=== PATIENT | female | born 1980 | race Hispanic/Latino ===

== ENCOUNTER 2016-12-19 18:26 | Inpatient (IN) | payer OTHER ==
[2016-12-19] MEDS ORDERED: Sodium Chloride 0.9% 1,000 ML IV STA (20:26)
[2016-12-19 20:49] LABS: BASO % 0.2 % (0.0-2.0); LYMPH # 0.6 K/uL (1.0-4.3); LYMPH % 10.9 % (20.0-40.0); MEAN CELL VOLUME 89.8 fl (81.0-99.0); MEAN CORPUSCULAR HEMOGLOBIN 29.9 pg (27.0-31.0); MEAN CORPUSCULAR HGB CONC 33.3 g/dL (33.0-37.0); MEAN PLATELET VOLUME 9.7 fl (7.2-11.7); MONO % 18.5 % (0.0-10.0); NEUT # 3.8 K/uL (1.8-7.0); NEUT % 70.4 % (50.0-75.0); NRBC % 0.1 % (0.0-0.0); RED CELL DISTRIBUTION WIDTH 12.8 % (11.5-14.5); WHITE BLOOD COUNT 5.4 K/uL (4.8-10.8)
--- NOTE | 2016-12-19 20:55 | ED PDOC ---
HPI: Abdomen Time Seen by Provider: 12/19/16 19:59 Chief Complaint (Nursing): Abdominal Pain Chief Complaint (Provider): abdominal pain History Per: Patient History/Exam Limitations: no limitations Onset/Duration Of Symptoms: Days (2), Gradual, Persistent Location Of Pain/Discomfort: RUQ, Epigastric Associated Symptoms: Fever, Chills, Nausea, Vomiting, Diarrhea, Loss Of Appetite , Other (vaginal bleeding due to recent D&C). denies: Urinary Symptoms Exacerbating Factors: None Alleviating Factors: None Past Medical History Reviewed: Historical Data, Nursing Documentation, Vital Signs Vital Signs: Last Vital Signs Temp 98.2 F 12/22/16 07:36 Pulse 72 12/22/16 07:36 Resp 20 12/22/16 07:36 BP 94/59 L 12/22/16 07:36 Pulse Ox 94 L 12/22/16 07:36 - Medical History PMH: No Chronic Diseases - Surgical History Surgical History: No Surg Hx - Family History Family History: States: No Known Family Hx - Home Medications Home Medications: Ambulatory Orders Medication Instructions Recorded No Known Home Med 12/19/16 - Allergies Allergies/Adverse Reactions: Allergies Allergy/AdvReac Type Severity Reaction Status Date / Time No Known Allergies Allergy Verified 12/19/16 18:28 Review of Systems ROS Statement: Except As Marked, All Systems Reviewed And Found Negative (and as per HPI) Constitutional: Positive for: Fever, Chills, Weakness, Malaise Gastrointestinal: Positive for: Nausea, Vomiting, Abdominal Pain, Diarrhea. Negative for: Constipation, Melena, Hematochezia, Hematemesis Genitourinary Female: Positive for: Vaginal Bleeding Physical Exam - Reviewed Nursing Documentation Reviewed: Yes Vital Signs Reviewed: Yes - Physical Exam Appears: Positive for: Non-toxic, Uncomfortable, In Acute Distress Head Exam: Positive for: ATRAUMATIC, NORMOCEPHALIC Skin: Positive for: Warm, Dry Eye Exam: Positive for: EOMI, PERRL ENT: Positive for: Pharynx Is (clear), Other (dry muc memb) Neck: Positive for: Painless ROM, Supple Cardiovascular/Chest: Positive for: Chest Non Tender, Tachycardia. Negative for : Murmur Respiratory: Positive for: Normal Breath Sounds. Negative for: Respiratory Distress Gastrointestinal/Abdominal: Positive for: Bowel Sounds, Soft, Tenderness. Negative for: Mass, Distended, Guarding, Rebound Back: Positive for: Normal Inspection. Negative for: Vertebral Tenderness Extremity: Positive for: Normal ROM. Negative for: Deformity Lymphatic: Negative for: Adenopathy Neurologic/Psych: Positive for: Alert. Negative for: Motor/Sensory Deficits - Laboratory Results Result Diagrams: 12/22/16 06:00 12/22/16 06:00 Interpretation Of Abn Labs: Mild dehydration, otherwise no clinically significant lab abnormalities - ECG O2 Sat by Pulse Oximetry: 100 - Progress ED Course And Treament: Accession No. : [id number] Patient Name / ID : ANTHONY CONNELLY / [id number] Exam Date : 12/19/2016 20:43:38 ( Approved ) Study Comment : Sex / Age : F / 36Y Creator : Maxim Pardo MD Dictator : Leader Assembler : Orientation & Mobility Specialist : Maxim Pardo MD Approver2 : Report Date : 12/19/2016 21:09:00 My Comment : [facility] Division of Radiology [address] [place] [address] Tel. no. Patient Name: GODWIN CRUZ Pt. Address: [facility] Rec #: [id number] Ordering Dr: Woodrow CARDOSO,Radha Jacobs Pt Phone: Order Location: [facility] : 1980 Female Age: 36 Order #: [id number] Reason for exam: RUQ pain and vomint Ultrasound GALLBLADDER HEPATIC Exam Date: 12/19/16 This imaging exam was performed at [facility] EXAM: US Abdomen Limited, Right Upper Quadrant CLINICAL HISTORY: 36 years old, female; Pain; Abdominal pain; Epigastric; Additional info: Ruq pain and vomint TECHNIQUE: Real-time ultrasound of the right upper quadrant with image documentation. COMPARISON: No relevant prior studies available. FINDINGS: Liver: Normal echogenicity. No mass. No intrahepatic bile duct dilatation. Gallbladder: Nonmobile stone within neck. Sludge. 0.28-0.38 cm wall thickness. No pericholecystic fluid. No sonographic Palacio's sign. Common bile duct: No dilatation. No stones. Pancreas: Unremarkable as visualized. Right kidney: Normal echogenicity. No hydronephrosis. IMPRESSION: 1. Cholelithiasis with borderline gallbladder wall thickening. Clinical correlation is needed. 2. Incidental/non-acute findings are described above. Dictated By: Maxim Pardo MD Dictated Date/Time: 12/19/162108 Signed By: Maxim Pardo MD Date Signed: 2108 Transcribed By: LATONYA Transcribe Date/Time : 12/19/162108 ACYP02/MANUEL DW pt findings and plan of care DW Lora Coates and Tereso, Surgery DW Dr Cronin Hospitalist Antibiotics IV ordered. Medical Decision Making Medical Decision Makinyo w gastroenteritis, cholelithiasis and possible cholecystitis, early sepsis and dehydration. Needs hospitalization for further management. Aggressive fluid hydration, pain control, IV antibiotics, surgical consultation. Disposition - Clinical Impression Clinical Impression: Abdominal pain, Cholecystitis - Disposition Disposition Time: 21:30 Condition: SERIOUS - Pt Status Changed To: Hospital Disposition Of: Observation - POA Present On Arrival: None
[2016-12-19 20:57] LABS: ALB/GLOB RATIO 1.2 (1.0-2.1); ALKALINE PHOSPHATASE 33 U/L (38-126); ALT/SGPT 94 U/L (9-52); AST/SGOT 74 U/L (14-36); BLOOD UREA NITROGEN 8 mg/dl (7-17); CALCIUM 9.2 mg/dL (8.4-10.2); CARBON DIOXIDE 23 mmol/L (22-30); CHLORIDE 96 mmol/L (98-107); GFR AFRICAN-AMERICAN > 60; GLUCOSE,RANDOM 115 mg/dL (65-105); LIPASE 177 U/L (23-300); SODIUM 131 mmol/l (132-148); TOTAL PROTEIN 7.9 G/DL (6.3-8.2)
[2016-12-19 20:58] LABS: POTASSIUM 4.6 MMOL/L (3.6-5.0)
--- NOTE | 2016-12-19 21:10 | US ---
EXAM: US Abdomen Limited, Right Upper Quadrant CLINICAL HISTORY: 36 years old, female; Pain; Abdominal pain; Epigastric; Additional info: Ruq pain and vomint TECHNIQUE: Real-time ultrasound of the right upper quadrant with image documentation. COMPARISON: No relevant prior studies available. FINDINGS: Liver: Normal echogenicity. No mass. No intrahepatic bile duct dilatation. Gallbladder: Nonmobile stone within neck. Sludge. 0.28-0.38 cm wall thickness. No pericholecystic fluid. No sonographic Palacio's sign. Common bile duct: No dilatation. No stones. Pancreas: Unremarkable as visualized. Right kidney: Normal echogenicity. No hydronephrosis. IMPRESSION: 1. Cholelithiasis with borderline gallbladder wall thickening. Clinical correlation is needed. 2. Incidental/non-acute findings are described above.
[2016-12-19] MEDS ORDERED: Ampicillin/Sulbactam 3 GM in Sodium Chloride 0.9% 100 ML IVPB ONE (22:00)
--- NOTE | 2016-12-19 22:02 | CP.PCM.HP ---
History of Present Illness - History of Present Illness History of Present Illness: PCP: None Chief complaint: Abdominal Pain/diarrhea HPI: 36 years old female with no significant past medical hx was sent to the Ed from the Urgent Care because of a 2 days hx of Intermittent , sharp , epigastric pain radiating to the RUQ and associated with fever, chills, diarrhea , vomiting and nausea, loss of appetite. She referred no eating of different foods, no travel hx, no other family member with vomiting and diarrhea. PMH: Denies PSH: Dilation and Curettage SH: Never smoked; Alcohol Socially; No illegal drug use; Live with family FH: No hereditary disease Allergies: NKDA Present on Admission - Present on Admission Any Indicators Present on Admission: No History of DVT/PE: No History of Uncontrolled Diabetes: No Urinary Catheter: No Decubitus Ulcer Present: No Review of Systems - Constitutional Constitutional: Anorexia, Chills, Fever. absent: Fatigue, Headache, Lethargy - EENT Eyes: absent: Diplopia, Floaters, Photophobia, Requires Corrective Lenses Ears: absent: Decreased Hearing, Ear Discharge, Ear Pain, Tinnitus Nose/Mouth/Throat: absent: Epistaxis, Nasal Congestion, Nasal Discharge, Sinus Pain, Sinus Pressure - Cardiovascular Cardiovascular: absent: Chest Pain, Dyspnea, Edema - Respiratory Respiratory: absent: Cough, Dyspnea, Wheezing, Stridor - Gastrointestinal Gastrointestinal: Abdominal Pain, Diarrhea, Nausea, Vomiting. absent: Constipation - Genitourinary Genitourinary: absent: Dysuria, Flank Pain, Hematuria, Urinary Frequency - Musculoskeletal Musculoskeletal: absent: Arthralgias, Back Pain, Muscle Cramps, Muscle Weakness , Myalgias - Integumentary Integumentary: absent: Pruritus, Rash, Skin Ulcer, Sores, Striae, Swelling - Neurological Neurological: absent: Confusion, Focal Weakness, Headaches, Weakness - Psychiatric Psychiatric: absent: Anxiety, Depression, Panic Attacks - Endocrine Endocrine: absent: Palpitations, Polydipsia, Polyphagia, Polyuria - Hematologic/Lymphatic Hematologic: absent: Easy Bleeding, Easy Bruising Past Patient History - Past Social History Smoking Status: Never Smoked Chewing Tobacco Use: No Cigar Use: No Alcohol: Social Drugs: Denies Home Situation {Lives}: With Family - CARDIAC Hx Cardiac Disorders: No - PULMONARY Hx Respiratory Disorders: No - NEUROLOGICAL Hx Neurological Disorder: No - HEENT Hx HEENT Problems: No - RENAL Hx Chronic Kidney Disease: No - ENDOCRINE/METABOLIC Hx Endocrine Disorders: No - HEMATOLOGICAL/ONCOLOGICAL Hx Blood Disorders: No - INTEGUMENTARY Hx Dermatological Problems: No - MUSCULOSKELETAL/RHEUMATOLOGICAL Hx Musculoskeletal Disorders: No - GASTROINTESTINAL Hx Gastrointestinal Disorders: No - GENITOURINARY/GYNECOLOGICAL Hx Genitourinary Disorders: No - PSYCHIATRIC Hx Psychophysiologic Disorder: No Hx Substance Use: No - SURGICAL HISTORY Hx Surgeries: Yes Hx Dilation and Curettage: Yes - ANESTHESIA Hx Anesthesia: Yes Hx Anesthesia Reactions: No Meds Allergies/Adverse Reactions: Allergies Allergy/AdvReac Type Severity Reaction Status Date / Time No Known Allergies Allergy Verified 12/19/16 18:28 Physical Exam - Constitutional Appears: No Acute Distress - Head Exam Head Exam: ATRAUMATIC, NORMAL INSPECTION, NORMOCEPHALIC - Eye Exam Eye Exam: EOMI, Normal appearance Pupil Exam: NORMAL ACCOMODATION, PERRL - ENT Exam ENT Exam: Mucous Membranes Moist, Normal Exam, Normal External Ear Exam, Normal Oropharynx - Neck Exam Neck exam: Positive for: Full Rom, Normal Inspection. Negative for: Lymphadenopathy, Tenderness - Respiratory Exam Respiratory Exam: Clear to Auscultation Bilateral. absent: Rales, Rhonchi, Wheezes - Cardiovascular Exam Cardiovascular Exam: REGULAR RHYTHM, RRR, +S1, +S2. absent: Gallop, JVD - GI/Abdominal Exam Additional comments: Soft, Tender at the Epigastrium and RUQ, no guarding Moderate rebound tenderness - Rectal Exam Rectal Exam: Deferred - Extremities Exam Extremities exam: Positive for: full ROM, normal inspection. Negative for: calf tenderness - Back Exam Back exam: NORMAL INSPECTION. absent: CVA tenderness (L), CVA tenderness (R) - Neurological Exam Neurological exam: Alert, CN II-XII Intact, Normal Gait, Oriented x3, Reflexes Normal - Psychiatric Exam Psychiatric exam: Normal Affect, Normal Mood - Skin Skin Exam: Dry, Intact, Normal Color, Warm Results - Vital Signs Recent Vital Signs: Last Vital Signs Temp 101.2 F H 12/19/16 21:16 Pulse 109 H 12/19/16 18:28 Resp 20 12/19/16 18:28 BP 99/63 L 12/19/16 18:28 Pulse Ox 100 12/19/16 21:57 - Labs Result Diagrams: 12/19/16 20:10 12/19/16 20:10 Labs: Laboratory Results - last 24 hr 12/19/16 12/19/16 20:10 20:10 WBC 5.4 RBC 4.23 Hgb 12.6 Hct 38.0 MCV 89.8 MCH 29.9 MCHC 33.3 RDW 12.8 Plt Count 225 MPV 9.7 Neut % (Auto) 70.4 Lymph % (Auto) 10.9 L [place] % (Auto) 18.5 H Eos % (Auto) 0.0 Baso % (Auto) 0.2 Neut # 3.8 Lymph # 0.6 L [place] # 1.0 H Eos # 0.0 Baso # 0.0 Sodium 131 L Potassium 4.6 Chloride 96 L Carbon Dioxide 23 Anion Gap 17 BUN 8 Creatinine 0.7 Est GFR ( Amer) > 60 Est GFR (Non-Af Amer) > 60 Random Glucose 115 H Calcium 9.2 Total Bilirubin 1.0 AST 74 H ALT 94 H Alkaline Phosphatase 33 L Total Protein 7.9 Albumin 4.3 Globulin 3.6 Albumin/Globulin Ratio 1.2 Lipase 177 - Imaging and Cardiology US - abdomen Status: Report reviewed by me Additional comment: FINDINGS: Liver: Normal echogenicity. No mass. No intrahepatic bile duct dilatation. Gallbladder: Nonmobile stone within neck. Sludge. 0.28-0.38 cm wall thickness. No pericholecystic fluid. No sonographic Palacio's sign. Common bile duct: No dilatation. No stones. Pancreas: Unremarkable as visualized. Right kidney: Normal echogenicity. No hydronephrosis. IMPRESSION: 1. Cholelithiasis with borderline gallbladder wall thickening. Clinical correlation is needed. 2. Incidental/non-acute findings are described above. Assessment & Plan - Assessment and Plan (Free Text) Assessment: #. Abdominal Pain #. Gastroenteritis #. Cholelithiasis #. Hyponatremia #. Transaminitis Plan: 36 years old female with no significant past medical hx was sent to the Ed from the Urgent Care because of a 2 days hx of Intermittent , sharp , epigastric pain radiating to the RUQ and associated with fever, chills, diarrhea , vomiting and nausea, loss of appetite. #. Gastroenteritis r/o Bacterial vs Viral - IV Fluids NS 125mls/hr - Zofran - Follow Stool C&S - follow Stool C Diff toxins #. Abdominal pain probably due to the Gastroenteritis and or a Biliary Colic - Pain management with Morphine sulfate #. Cholelithiasis within the neck, Sludge and wall thickening r/o cholecystitis - Consult Surgery Dr Coates - NPO - HIDA Scan #. Hyponatremia - IV Fluid with NS at 125mls/hr #. Transaminitis due to the Diarrhea and vomiting - Hepatitis profile - Follow LFT #. Stress ulcer Prophylaxis with Pepcid #. DVT prophylaxis with SCD #. Code Status: Full - Date & Time Date: 12/19/16 Time: 22:02
[2016-12-20] MEDS: Ampicillin/Sulbactam 3 GM in Sodium Chloride 0.9% 100 ML IVPB SCH ×4 (04:08→21:54)
--- NOTE | 2016-12-20 04:36 | CP.PCM.CON ---
<Jovanni Rider Collin - Last Filed: 12/20/16 05:02> History of Present Illness - History of Present Illness History of Present Illness: Gen Surg: Dr Coates Pt is a 36F with no PMH. Recently had D&C for miscarriage on saturday. On saturday pt was having macaroni and cheese when she developed a sharp stabbing epigastric pain. That pain has progressively radiated to the RUQ. Does not radiate to the back. It has been fairly consistent since onset, with associated nausea and billous emesis. Last bout of emesis @ 3AM this morning. Pt reports also having associated diarrhea. She has never had pain like this before. Denies any chills, constipation, dysuria. Of note, pt states her baseline BP is normally low. She has been urinating frequently since IV fluid administration. In ED pt was febrile, Tmax 101.6. Found to have a stone in the neck of gallbladder and mild transaminitis. Review of Systems - Review of Systems All systems: reviewed and no additional remarkable complaints except (as per hpi ) Past Patient History - Past Social History Smoking Status: Never Smoked - CARDIAC Hx Cardiac Disorders: No - PULMONARY Hx Respiratory Disorders: No - NEUROLOGICAL Hx Neurological Disorder: No - HEENT Hx HEENT Problems: No - RENAL Hx Chronic Kidney Disease: No - ENDOCRINE/METABOLIC Hx Endocrine Disorders: No - HEMATOLOGICAL/ONCOLOGICAL Hx Blood Disorders: No - INTEGUMENTARY Hx Dermatological Problems: No - MUSCULOSKELETAL/RHEUMATOLOGICAL Hx Falls: No - GASTROINTESTINAL Hx Gastrointestinal Disorders: No - GENITOURINARY/GYNECOLOGICAL Hx Genitourinary Disorders: No - PSYCHIATRIC Hx Psychophysiologic Disorder: No Hx Substance Use: No - SURGICAL HISTORY Hx Surgeries: Yes Hx Dilation and Curettage: Yes - ANESTHESIA Hx Anesthesia: Yes Hx Anesthesia Reactions: No Meds Allergies/Adverse Reactions: Allergies Allergy/AdvReac Type Severity Reaction Status Date / Time No Known Allergies Allergy Verified 12/19/16 18:28 - Medications Medications: Current Medications Famotidine (Pepcid) 20 mg IVP Q12 YURIDIA Dextrose/Sodium Chloride (Dextrose 5%-0.9% Ns 500 Ml) 1,000 mls @ 100 mls/hr IV .Q10H YURIDIA Last Admin: 12/20/16 00:04 Dose: Not Given Ampicillin Sodium/Sulbactam (Sodium 3 gm/ Sodium Chloride) 100 mls @ 100 mls/ hr IVPB Q6 YURIDIA Last Admin: 12/20/16 04:08 Dose: 100 mls/hr Sodium Chloride (Sodium Chloride 0.9%) 1,000 mls @ 125 mls/hr IV .Q8H [facility] Stop: 12/20/16 22:49 Last Admin: 12/20/16 00:00 Dose: Not Given Morphine Sulfate (Morphine) 2 mg IVP Q4 PRN PRN Reason: Pain, moderate (4-7) Last Admin: 12/20/16 04:09 Dose: 2 mg Morphine Sulfate (Morphine) 4 mg IVP Q4 PRN PRN Reason: Pain, severe (8-10) Ondansetron HCl (Zofran Inj) 4 mg IVP Q4 PRN PRN Reason: Nausea/Vomiting Zolpidem Tartrate (Ambien) 5 mg PO HS PRN PRN Reason: Sleep Last Admin: 12/20/16 00:12 Dose: 5 mg Physical Exam - Constitutional Appears: Non-toxic, No Acute Distress - Head Exam Head Exam: NORMAL INSPECTION - Eye Exam Eye Exam: EOMI. absent: Scleral icterus - ENT Exam ENT Exam: Mucous Membranes Moist - Respiratory Exam Respiratory Exam: absent: Accessory Muscle Use, Respiratory Distress - Cardiovascular Exam Cardiovascular Exam: REGULAR RHYTHM. absent: Tachycardia - GI/Abdominal Exam GI & Abdominal Exam: Soft, Tenderness (epigastric and RUQ, - Palacio's). absent : Distended, Firm, Guarding, Hernia, Mass, Rebound, Rigid - Extremities Exam Extremities exam: Positive for: pedal pulses present. Negative for: calf tenderness, pedal edema - Neurological Exam Neurological exam: Alert, Oriented x3 - Psychiatric Exam Psychiatric exam: Normal Affect, Normal Mood - Skin Skin Exam: Normal Color, Warm Results - Vital Signs Recent Vital Signs: Last Vital Signs Temp 98.0 F 12/20/16 00:31 Pulse 77 12/20/16 00:31 Resp 19 12/20/16 00:31 BP 94/60 L 12/20/16 00:31 Pulse Ox 96 12/20/16 00:31 - Labs Result Diagrams: 12/19/16 20:10 12/19/16 20:10 Assessment & Plan - Assessment and Plan (Free Text) Assessment: 36F with RUQ pain Plan: likely biliary in etiology possible HIDA per primary's note Cont abx cont NPO cont IV fluids will d/w attending need for surgical intervention will d/w Dr Jaxon Rider, PGY2 - Date & Time Date: 12/20/16 Time: 05:12 <Amos Funes - Last Filed: 12/20/16 11:39> History of Present Illness - History of Present Illness History of Present Illness: Patient was seen and examined at the bedside. Agree with resident's note above. Meds - Medications Medications: Current Medications Famotidine (Pepcid) 20 mg IVP Q12 YURIDIA Dextrose/Sodium Chloride (Dextrose 5%-0.9% Ns 500 Ml) 1,000 mls @ 100 mls/hr IV .Q10H YURIDIA Last Admin: 12/20/16 07:15 Dose: Not Given Ampicillin Sodium/Sulbactam (Sodium 3 gm/ Sodium Chloride) 100 mls @ 100 mls/ hr IVPB Q6 YURIDIA Last Admin: 12/20/16 04:08 Dose: 100 mls/hr Sodium Chloride (Sodium Chloride 0.9%) 1,000 mls @ 125 mls/hr IV .Q8H YURIDIA Stop: 12/20/16 22:49 Last Admin: 12/20/16 07:14 Dose: Not Given Potassium Chloride (Potassium Chloride 10 Meq/100 Ml) 100 mls @ 100 mls/hr IVPB Q1 YURIDIA Stop: 12/20/16 11:59 Morphine Sulfate (Morphine) 2 mg IVP Q4 PRN PRN Reason: Pain, moderate (4-7) Last Admin: 12/20/16 04:09 Dose: 2 mg Morphine Sulfate (Morphine) 4 mg IVP Q4 PRN PRN Reason: Pain, severe (8-10) Ondansetron HCl (Zofran Inj) 4 mg IVP Q4 PRN PRN Reason: Nausea/Vomiting Zolpidem Tartrate (Ambien) 5 mg PO HS PRN PRN Reason: Sleep Last Admin: 12/20/16 00:12 Dose: 5 mg Results - Vital Signs Recent Vital Signs: Last Vital Signs Temp 99.4 F 12/20/16 07:36 Pulse 94 H 12/20/16 07:36 Resp 18 12/20/16 07:36 BP 94/60 L 12/20/16 07:36 Pulse Ox 98 12/20/16 07:36 - Labs Result Diagrams: 12/20/16 06:20 12/20/16 06:20 Labs: Laboratory Results - last 24 hr 12/20/16 12/20/16 06:20 06:20 WBC 4.9 RBC 3.61 L Hgb 10.8 L Hct 32.1 L MCV 89.0 MCH 29.9 MCHC 33.6 RDW 12.7 Plt Count 165 MPV 8.9 Neut % (Auto) 56.0 Lymph % (Auto) 14.0 L [place] % (Auto) 29.6 H Eos % (Auto) 0.1 Baso % (Auto) 0.3 Neut # 2.8 Lymph # 0.7 L [place] # 1.5 H Eos # 0.0 Baso # 0.0 Neutrophils % (Manual) 33 L Band Neutrophils % 22 H* Lymphocytes % (Manual) 21 Monocytes % (Manual) 24 H Platelet Estimate Normal Hypochromasia (manual) Slight Sodium 137 Potassium 3.4 L Chloride 104 Carbon Dioxide 25 Anion Gap 11 BUN 6 L Creatinine 0.7 Est GFR ( Amer) > 60 Est GFR (Non-Af Amer) > 60 Random Glucose 112 H Calcium 8.3 L Total Bilirubin 0.4 AST 37 H D ALT 81 H Alkaline Phosphatase 36 L Total Protein 5.8 L Albumin 3.2 L D Globulin 2.7 Albumin/Globulin Ratio 1.2 - Imaging and Cardiology US - abdomen Status: Image reviewed by me, Report reviewed by me Assessment & Plan - Assessment and Plan (Free Text) Plan: - Keep NPO - IV fluids - Pain control - Unasyn - HIDA scan - Will follow
[2016-12-20 06:58] LABS: BASO % 0.3 % (0.0-2.0); EOS % 0.1 % (0.0-4.0); HEMATOCRIT 32.1 % (34.0-47.0); LYMPH # 0.7 K/uL (1.0-4.3); MEAN CORPUSCULAR HEMOGLOBIN 29.9 pg (27.0-31.0); MEAN CORPUSCULAR HGB CONC 33.6 g/dL (33.0-37.0); MEAN PLATELET VOLUME 8.9 fl (7.2-11.7); MONO # 1.5 K/uL (0.0-0.8); MONO % 29.6 % (0.0-10.0); NEUT # 2.8 K/uL (1.8-7.0); PLATELET COUNT 165 K/uL (130-400); RED CELL DISTRIBUTION WIDTH 12.7 % (11.5-14.5); WHITE BLOOD COUNT 4.9 K/uL (4.8-10.8)
[2016-12-20 07:04] LABS: ALB/GLOB RATIO 1.2 (1.0-2.1); ALKALINE PHOSPHATASE 36 U/L (38-126); ALT/SGPT 81 U/L (9-52); AST/SGOT 37 U/L (14-36); BILIRUBIN,TOTAL 0.4 mg/dl (0.2-1.3); BLOOD UREA NITROGEN 6 mg/dl (7-17); CALCIUM 8.3 mg/dL (8.4-10.2); CARBON DIOXIDE 25 mmol/L (22-30); CHLORIDE 104 mmol/L (98-107); GFR AFRICAN-AMERICAN > 60; GLUCOSE,RANDOM 112 mg/dL (65-105); POTASSIUM 3.4 MMOL/L (3.6-5.0); SODIUM 137 mmol/l (132-148); TOTAL PROTEIN 5.8 G/DL (6.3-8.2)
[2016-12-20] MEDS: Sodium Chloride 0.9% 1,000 ML IV SCH ×2 (07:14)
[2016-12-20 11:13] LABS: NEUTROPHIL 33 % (42-75); TOTAL CELLS COUNTED 100
[2016-12-20] MEDS: Potassium CL 10mEq/100ml 100 ML IVPB SCH ×2 (11:45→12:57)
[2016-12-20] MEDS: metroNIDAZOLE 500mg/100ml NS 100 ML IVPB SCH ×2 (12:00→17:44)
--- NOTE | 2016-12-20 12:21 | CP.PCM.PN ---
Subjective - Date & Time of Evaluation Date of Evaluation: 12/20/16 Time of Evaluation: 12:00 - Subjective Subjective: Febrile 101.2 on admission no fever at present still with RUQ pain but better no N/V diarrhea resolved no CP no SOB no dysuria Pt had recent miscarriage last wk and had D&C Objective - Vital Signs/Intake and Output Vital Signs (last 24 hours): Temp Pulse Resp BP Pulse Ox 99.4 F 94 H 18 94/60 L 98 12/20/16 07:36 12/20/16 07:36 12/20/16 07:36 12/20/16 07:36 12/20/16 07:36 - Medications Medications: Current Medications Famotidine (Pepcid) 20 mg IVP Q12 YURIDIA Ampicillin Sodium/Sulbactam (Sodium 3 gm/ Sodium Chloride) 100 mls @ 100 mls/ hr IVPB Q6 YURIDIA Last Admin: 12/20/16 10:00 Dose: 100 mls/hr Sodium Chloride (Sodium Chloride 0.9%) 1,000 mls @ 125 mls/hr IV .Q8H COUNT INCLUDES THE [facility] Stop: 12/20/16 22:49 Last Admin: 12/20/16 07:14 Dose: Not Given Metronidazole (Flagyl 500mg/100ml Ns) 100 mls @ 100 mls/hr IVPB Q8 YURIDIA Morphine Sulfate (Morphine) 2 mg IVP Q4 PRN PRN Reason: Pain, moderate (4-7) Last Admin: 12/20/16 04:09 Dose: 2 mg Morphine Sulfate (Morphine) 4 mg IVP Q4 PRN PRN Reason: Pain, severe (8-10) Ondansetron HCl (Zofran Inj) 4 mg IVP Q4 PRN PRN Reason: Nausea/Vomiting Zolpidem Tartrate (Ambien) 5 mg PO HS PRN PRN Reason: Sleep Last Admin: 12/20/16 00:12 Dose: 5 mg - Labs Labs: 12/20/16 06:20 12/20/16 06:20 - Constitutional Appears: No Acute Distress - Head Exam Head Exam: NORMAL INSPECTION, NORMOCEPHALIC - Eye Exam Eye Exam: EOMI, Normal appearance, PERRL Pupil Exam: NORMAL ACCOMODATION - ENT Exam ENT Exam: Mucous Membranes Moist, Normal External Ear Exam - Neck Exam Neck Exam: Full ROM. absent: Meningismus - Respiratory Exam Respiratory Exam: NORMAL BREATHING PATTERN. absent: Respiratory Distress - Cardiovascular Exam Cardiovascular Exam: REGULAR RHYTHM, +S1, +S2 - GI/Abdominal Exam GI & Abdominal Exam: Soft, Tenderness (RUQ), Normal Bowel Sounds - Extremities Exam Extremities Exam: Full ROM, Normal Capillary Refill. absent: Calf Tenderness - Back Exam Back Exam: Full ROM, NORMAL INSPECTION. absent: CVA tenderness (L), CVA tenderness (R), paraspinal tenderness - Neurological Exam Neurological Exam: Alert, Awake, CN II-XII Intact, Oriented x3 Neuro motor strength exam: Left Upper Extremity: 5, Right Upper Extremity: 5, Left Lower Extremity: 5, Right Lower Extremity: 5 - Psychiatric Exam Psychiatric exam: Normal Affect, Normal Mood - Skin Skin Exam: Dry, Normal Color, Warm Assessment and Plan - Assessment and Plan (Free Text) Assessment: 36 years old female with no significant past medical hx was sent to the ED from the Urgent Care because of a 2 days hx of Intermittent , sharp , epigastric pain radiating to the RUQ and associated with fever, chills, diarrhea , vomiting and nausea, loss of appetite. #. RUQ Abdominal pain probably due to Biliary Colic -GB sonogram shows Gallstone with some pericholecystic inflammation - LFTS abnormal - Surgery consulted - HIDA scan - started empirically on IV Unasyn , add Flagyl - Pain mgt #. Vomiting Diarrhea prob Gastroenteritis, resolved - IV Fluids NS 125mls/hr - Zofran -Stool C&S - Stool C Diff toxin: negative #. Hyponatremia, imroved - IV Fluid with NS at 125mls/hr #. Transaminitis prob sec GB dis - Hepatitis profile: negative - Follow LFT #. Stress ulcer Prophylaxis with Pepcid #. DVT prophylaxis with SCD
[2016-12-21] MEDS: metroNIDAZOLE 500mg/100ml NS 100 ML IVPB SCH ×3 (01:15→16:43)
[2016-12-21] MEDS: Ampicillin/Sulbactam 3 GM in Sodium Chloride 0.9% 100 ML IVPB SCH ×4 (04:18→22:33)
[2016-12-21 06:40] LABS: BASO % 0.3 % (0.0-2.0); EOS % 0.3 % (0.0-4.0); HEMATOCRIT 29.8 % (34.0-47.0); LYMPH # 1.2 K/uL (1.0-4.3); LYMPH % 16.4 % (20.0-40.0); MEAN CELL VOLUME 89.2 fl (81.0-99.0); MEAN CORPUSCULAR HEMOGLOBIN 29.7 pg (27.0-31.0); MEAN CORPUSCULAR HGB CONC 33.3 g/dL (33.0-37.0); MEAN PLATELET VOLUME 8.7 fl (7.2-11.7); MONO # 1.5 K/uL (0.0-0.8); MONO % 21.1 % (0.0-10.0); NEUT # 4.5 K/uL (1.8-7.0); NEUT % 61.9 % (50.0-75.0); RED CELL DISTRIBUTION WIDTH 12.7 % (11.5-14.5); WHITE BLOOD COUNT 7.2 K/uL (4.8-10.8)
[2016-12-21 06:49] LABS: ALB/GLOB RATIO 1.1 (1.0-2.1); ALKALINE PHOSPHATASE 41 U/L (38-126); ALT/SGPT 65 U/L (9-52); AST/SGOT 19 U/L (14-36); BILIRUBIN,TOTAL 0.2 mg/dl (0.2-1.3); BLOOD UREA NITROGEN 6 mg/dl (7-17); CALCIUM 8.2 mg/dL (8.4-10.2); CARBON DIOXIDE 25 mmol/L (22-30); CHLORIDE 106 mmol/L (98-107); GFR AFRICAN-AMERICAN > 60; GLUCOSE,RANDOM 83 mg/dL (65-105); POTASSIUM 3.6 MMOL/L (3.6-5.0); SODIUM 141 mmol/l (132-148); TOTAL PROTEIN 5.6 G/DL (6.3-8.2)
[2016-12-21 07:00] LABS: PARTIAL THROMBOPLASTIN TIME 27.4 Seconds (25.6-37.1)
--- NOTE | 2016-12-21 09:06 | CP.PCM.PN ---
Subjective - Date & Time of Evaluation Date of Evaluation: 12/21/16 Time of Evaluation: 07:45 Objective - Vital Signs/Intake and Output Vital Signs (last 24 hours): Temp Pulse Resp BP Pulse Ox 98.3 F 77 18 96/61 L 99 12/21/16 00:13 12/21/16 00:13 12/21/16 00:13 12/21/16 00:13 12/21/16 00:13 - Medications Medications: Current Medications Famotidine (Pepcid) 20 mg IVP Q12 [facility] Last Admin: 12/21/16 08:33 Dose: 20 mg Ampicillin Sodium/Sulbactam (Sodium 3 gm/ Sodium Chloride) 100 mls @ 100 mls/ hr IVPB Q6 [facility] Last Admin: 12/21/16 04:18 Dose: 100 mls/hr Metronidazole (Flagyl 500mg/100ml Ns) 100 mls @ 100 mls/hr IVPB Q8 [facility] Last Admin: 12/21/16 08:30 Dose: 100 mls/hr Morphine Sulfate (Morphine) 2 mg IVP Q4 PRN PRN Reason: Pain, moderate (4-7) Last Admin: 12/20/16 21:41 Dose: 2 mg Morphine Sulfate (Morphine) 4 mg IVP Q4 PRN PRN Reason: Pain, severe (8-10) Ondansetron HCl (Zofran Inj) 4 mg IVP Q4 PRN PRN Reason: Nausea/Vomiting Zolpidem Tartrate (Ambien) 5 mg PO HS PRN PRN Reason: Sleep Last Admin: 12/20/16 00:12 Dose: 5 mg - Labs Labs: 12/21/16 06:10 12/21/16 06:10 PT 13.9 Seconds (9.8-13.1) H 12/21/16 06:10 INR 1.2 (0.9-1.2) 12/21/16 06:10 APTT 27.4 Seconds (25.6-37.1) 12/21/16 06:10
--- NOTE | 2016-12-21 10:32 | CP.PCM.PN ---
Subjective - Date & Time of Evaluation Date of Evaluation: 12/21/16 Time of Evaluation: 10:05 - Subjective Subjective: Patient was seen and examined at the bedside. HIDA scan is negative for cystic duct obstruction. Having diarrhea and reports some crampy abdominal pain. Objective - Vital Signs/Intake and Output Vital Signs (last 24 hours): Temp Pulse Resp BP Pulse Ox 98.6 F 89 20 98/63 L 98 12/21/16 09:40 12/21/16 09:40 12/21/16 09:40 12/21/16 09:40 12/21/16 09:40 - Medications Medications: Current Medications Famotidine (Pepcid) 20 mg IVP Q12 [facility] Last Admin: 12/21/16 08:33 Dose: 20 mg Ampicillin Sodium/Sulbactam (Sodium 3 gm/ Sodium Chloride) 100 mls @ 100 mls/ hr IVPB Q6 [facility] Last Admin: 12/21/16 09:04 Dose: 100 mls/hr Metronidazole (Flagyl 500mg/100ml Ns) 100 mls @ 100 mls/hr IVPB Q8 [facility] Last Admin: 12/21/16 08:30 Dose: 100 mls/hr Morphine Sulfate (Morphine) 2 mg IVP Q4 PRN PRN Reason: Pain, moderate (4-7) Last Admin: 12/20/16 21:41 Dose: 2 mg Morphine Sulfate (Morphine) 4 mg IVP Q4 PRN PRN Reason: Pain, severe (8-10) Ondansetron HCl (Zofran Inj) 4 mg IVP Q4 PRN PRN Reason: Nausea/Vomiting Zolpidem Tartrate (Ambien) 5 mg PO HS PRN PRN Reason: Sleep Last Admin: 12/20/16 00:12 Dose: 5 mg - Labs Labs: 12/21/16 06:10 12/21/16 06:10 PT 13.9 Seconds (9.8-13.1) H 12/21/16 06:10 INR 1.2 (0.9-1.2) 12/21/16 06:10 APTT 27.4 Seconds (25.6-37.1) 12/21/16 06:10 - Constitutional Appears: Well, Non-toxic, No Acute Distress - Head Exam Head Exam: ATRAUMATIC, NORMAL INSPECTION, NORMOCEPHALIC - Eye Exam Eye Exam: EOMI, Normal appearance, PERRL Pupil Exam: NORMAL ACCOMODATION, PERRL - ENT Exam ENT Exam: Mucous Membranes Moist, Normal Exam - Neck Exam Neck Exam: Full ROM, Normal Inspection - Respiratory Exam Respiratory Exam: NORMAL BREATHING PATTERN - Cardiovascular Exam Cardiovascular Exam: REGULAR RHYTHM, +S1, +S2 - GI/Abdominal Exam GI & Abdominal Exam: Soft, Normal Bowel Sounds Additional comments: Very mildly tender, ND, no rebound, no guarding - Rectal Exam Rectal Exam: Deferred - Extremities Exam Extremities Exam: Full ROM, Normal Inspection - Neurological Exam Neurological Exam: Alert, Awake, CN II-XII Intact, Oriented x3 - Psychiatric Exam Psychiatric exam: Normal Affect, Normal Mood - Skin Skin Exam: Dry, Intact, Normal Color, Warm Assessment and Plan - Assessment and Plan (Free Text) Assessment: 36 y.o. female with abdominal pain and diarrhea likely secondary to gastroenteritis Plan: - Start clear liquid diet - pain control - Pepcid - Zofran prn - Repeat labs in am - No general surgery intervention at present time - Will follow
--- NOTE | 2016-12-21 12:02 | NM ---
PROCEDURE: Radionuclide hepatobiliary scan HISTORY: Cholelithiasis r/o Cholecystitis COMPARISON: Not available TECHNIQUE: Following the intravenous administration of 5.00 mCi of technetium 99 M Choletec, sequential images of the abdomen were obtained in the frontal projection at 15 minutes intervals. Additional views were obtained in varying projections. Images were obtained to 240 minutes post injection. FINDINGS: The gallbladder is visualized at 60 minutes post injection. Bowel is visualized at 15 minutes post injection. There is normal uptake and excretion of the radiopharmaceutical by the liver. There is no evidence of cystic duct obstruction. IMPRESSION: No evidence of cystic duct obstruction. Preliminary interpretation of this examination was reported by [facility] at 6:48 p.m. on 12/20/2016. There is concurrence of this report with the preliminary interpretation.
--- NOTE | 2016-12-21 12:53 | CP.PCM.PN ---
Subjective - Date & Time of Evaluation Date of Evaluation: 12/21/16 Time of Evaluation: 12:45 - Subjective Subjective: No fever no nausea nor vomiting started on Clear liquid diet by Dr Funes Had 3 episodes of diarrhea this am mild RUQ pain no CP no sOB Objective - Vital Signs/Intake and Output Vital Signs (last 24 hours): Temp Pulse Resp BP Pulse Ox 98.6 F 89 20 98/63 L 98 12/21/16 09:40 12/21/16 09:40 12/21/16 09:40 12/21/16 09:40 12/21/16 09:40 - Medications Medications: Current Medications Famotidine (Pepcid) 20 mg IVP Q12 [facility] Last Admin: 12/21/16 08:33 Dose: 20 mg Ampicillin Sodium/Sulbactam (Sodium 3 gm/ Sodium Chloride) 100 mls @ 100 mls/ hr IVPB Q6 [facility] Last Admin: 12/21/16 09:04 Dose: 100 mls/hr Metronidazole (Flagyl 500mg/100ml Ns) 100 mls @ 100 mls/hr IVPB Q8 [facility] Last Admin: 12/21/16 08:30 Dose: 100 mls/hr Morphine Sulfate (Morphine) 2 mg IVP Q4 PRN PRN Reason: Pain, moderate (4-7) Last Admin: 12/20/16 21:41 Dose: 2 mg Morphine Sulfate (Morphine) 4 mg IVP Q4 PRN PRN Reason: Pain, severe (8-10) Ondansetron HCl (Zofran Inj) 4 mg IVP Q4 PRN PRN Reason: Nausea/Vomiting Zolpidem Tartrate (Ambien) 5 mg PO HS PRN PRN Reason: Sleep Last Admin: 12/20/16 00:12 Dose: 5 mg - Labs Labs: 12/21/16 06:10 12/21/16 06:10 PT 13.9 Seconds (9.8-13.1) H 12/21/16 06:10 INR 1.2 (0.9-1.2) 12/21/16 06:10 APTT 27.4 Seconds (25.6-37.1) 12/21/16 06:10 - Constitutional Appears: No Acute Distress - Head Exam Head Exam: NORMAL INSPECTION, NORMOCEPHALIC - Eye Exam Eye Exam: EOMI, Normal appearance, PERRL Pupil Exam: NORMAL ACCOMODATION - ENT Exam ENT Exam: Mucous Membranes Moist, Normal External Ear Exam - Neck Exam Neck Exam: Full ROM. absent: Meningismus - Respiratory Exam Respiratory Exam: NORMAL BREATHING PATTERN. absent: Respiratory Distress - Cardiovascular Exam Cardiovascular Exam: REGULAR RHYTHM, +S1, +S2 - GI/Abdominal Exam GI & Abdominal Exam: Soft, mild Tenderness (RUQ), Normal Bowel Sounds - Extremities Exam Extremities Exam: Full ROM, Normal Capillary Refill. absent: Calf Tenderness - Back Exam Back Exam: Full ROM, NORMAL INSPECTION. absent: CVA tenderness (L), CVA tenderness (R), paraspinal tenderness - Neurological Exam Neurological Exam: Alert, Awake, CN II-XII Intact, Oriented x3 Neuro motor strength exam: Left Upper Extremity: 5, Right Upper Extremity: 5, Left Lower Extremity: 5, Right Lower Extremity: 5 - Psychiatric Exam Psychiatric exam: Normal Affect, Normal Mood - Skin Skin Exam: Dry, Normal Color, Warm Assessment and Plan - Assessment and Plan (Free Text) Assessment: 36 years old female with no significant past medical hx was sent to the ED from the Urgent Care because of a 2 days hx of Intermittent , sharp , epigastric pain radiating to the RUQ and associated with fever, chills, diarrhea , vomiting and nausea, loss of appetite. #. RUQ Abdominal pain , Biliary Colic ruled out -GB sonogram shows Gallstone with borderline GB wall thickening - LFTS abnormal but now improving - Surgery consulted- Dr Funes - feels that pain is sec to Gastroenteritis - HIDA scan: no cystic duct obstruction - started empirically on IV Unasyn and Flagyl - Pain mgt #. Vomiting Diarrhea prob Gastroenteritis - pt had 3 episodes of diarrhea this morning - IV Fluids NS 125mls/hr - Zofran -Stool C&S: pending - Stool C Diff toxin: negative - Ova and Parasite: negative #. Hyponatremia, improved - IV Fluid with NS at 125mls/hr #. Transaminitis unclear etiology - Hepatitis profile: negative - LFT improving #. Stress ulcer Prophylaxis with Pepcid #. DVT prophylaxis with SCD
[2016-12-22] MEDS: metroNIDAZOLE 500mg/100ml NS 100 ML IVPB SCH ×2 (01:46→09:00)
[2016-12-22] MEDS: Ampicillin/Sulbactam 3 GM in Sodium Chloride 0.9% 100 ML IVPB SCH (03:59)
--- NOTE | 2016-12-22 07:31 | CP.PCM.DIS ---
Provider - Provider Date of Admission: 12/20/16 18:59 Attending physician: Kalin Cronin Consults: surgery consult Time Spent in preparation of Discharge (in minutes): 20 Hospital Course - Lab Results Lab Results: Most Recent Lab Values WBC 7.2 K/uL (4.8-10.8) 12/21/16 06:10 RBC 3.34 Mil/uL (3.80-5.20) L 12/21/16 06:10 Hgb 9.9 g/dL (12.0-16.0) L 12/21/16 06:10 Hct 29.8 % (34.0-47.0) L 12/21/16 06:10 MCV 89.2 fl (81.0-99.0) 12/21/16 06:10 MCH 29.7 pg (27.0-31.0) 12/21/16 06:10 MCHC 33.3 g/dL (33.0-37.0) 12/21/16 06:10 RDW 12.7 % (11.5-14.5) 12/21/16 06:10 Plt Count 176 K/uL (130-400) 12/21/16 06:10 MPV 8.7 fl (7.2-11.7) 12/21/16 06:10 Neut % (Auto) 61.9 % (50.0-75.0) 12/21/16 06:10 Lymph % (Auto) 16.4 % (20.0-40.0) L 12/21/16 06:10 [place] % (Auto) 21.1 % (0.0-10.0) H 12/21/16 06:10 Eos % (Auto) 0.3 % (0.0-4.0) 12/21/16 06:10 Baso % (Auto) 0.3 % (0.0-2.0) 12/21/16 06:10 Neut # 4.5 K/uL (1.8-7.0) 12/21/16 06:10 Lymph # 1.2 K/uL (1.0-4.3) 12/21/16 06:10 [place] # 1.5 K/uL (0.0-0.8) H 12/21/16 06:10 Eos # 0.0 K/uL (0.0-0.7) 12/21/16 06:10 Baso # 0.0 K/uL (0.0-0.2) 12/21/16 06:10 Neutrophils % (Manual) 33 % (42-75) L 12/20/16 06:20 Band Neutrophils % 22 % (0-2) H* 12/20/16 06:20 Lymphocytes % (Manual) 21 % (20-50) 12/20/16 06:20 Monocytes % (Manual) 24 % (0-10) H 12/20/16 06:20 Platelet Estimate Normal (NORMAL) 12/20/16 06:20 Hypochromasia (manual) Slight 12/20/16 06:20 PT 13.9 Seconds (9.8-13.1) H 12/21/16 06:10 INR 1.2 (0.9-1.2) 12/21/16 06:10 APTT 27.4 Seconds (25.6-37.1) 12/21/16 06:10 Sodium 141 mmol/l (132-148) 12/21/16 06:10 Potassium 3.6 MMOL/L (3.6-5.0) 12/21/16 06:10 Chloride 106 mmol/L (98-107) 12/21/16 06:10 Carbon Dioxide 25 mmol/L (22-30) 12/21/16 06:10 Anion Gap 14 (10-20) 12/21/16 06:10 BUN 6 mg/dl (7-17) L 12/21/16 06:10 Creatinine 0.7 mg/dL (0.7-1.2) 12/21/16 06:10 Est GFR ( Amer) > 60 12/21/16 06:10 Est GFR (Non-Af Amer) > 60 12/21/16 06:10 Random Glucose 83 mg/dL (65-105) 12/21/16 06:10 Lactic Acid 1.3 MMOL/L (0.7-2.1) 12/19/16 21:25 Calcium 8.2 mg/dL (8.4-10.2) L 12/21/16 06:10 Total Bilirubin 0.2 mg/dl (0.2-1.3) 12/21/16 06:10 AST 19 U/L (14-36) 12/21/16 06:10 ALT 65 U/L (9-52) H 12/21/16 06:10 Alkaline Phosphatase 41 U/L (38-126) 12/21/16 06:10 Total Protein 5.6 G/DL (6.3-8.2) L 12/21/16 06:10 Albumin 2.9 g/dL (3.5-5.0) L 12/21/16 06:10 Globulin 2.7 gm/dL (2.2-3.9) 12/21/16 06:10 Albumin/Globulin Ratio 1.1 (1.0-2.1) 12/21/16 06:10 Lipase 177 U/L (23-300) 12/19/16 20:10 C. difficile Ag & Toxin Negative (NEGATIVE) 12/19/16 21:25 Hepatitis A IgM Ab Negative (NEGATIVE) 12/20/16 06:20 Hep Bs Antigen Negative (NEGATIVE) 12/20/16 06:20 Hep B Core IgM Ab Negative (NEGATIVE) 12/20/16 06:20 Hepatitis C Antibody Negative (NEGATIVE) 12/20/16 06:20 - Hospital Course Hospital Course: 36 years old female with no significant past medical hx was sent to the ED from the Urgent Care because of a 2 days hx of Intermittent , sharp , epigastric pain radiating to the RUQ and associated with fever, chills, diarrhea , vomiting and nausea, loss of appetite. Recently had D&C for miscarriage on saturday, ( with vaginal bleeding at present ) On Saturday pt was having macaroni and cheese when she developed a sharp stabbing epigastric pain, associated nausea and billous emesis with diarrhea. Denies any chills, constipation, dysuria. In ED pt was febrile, Tmax 101.6. gallbladder US showed gallstone and borderline gall bladder wall thickening with minimal elevateion of LFT-s Patient admitted to med-surg , kept NPO, started on IVF, Unasyn and Flagyl IV and pain management and surgery consulted. HIDA scan showed no acute cholecystitis.Stool work up showed no c.diff. no ova or parasities, hepatitis profile was negative. Patient clinically remained stable, abdominal pain, nausea and vomiting resolved. She tolerated regular diet and wants to go home. Cleared by surgery for discharge. 1. RUQ Abdominal pain most likely secondary to gastroenteritis Biliary Colic ruled out GB sonogram shows Gallstone with borderline GB wall thickening LFTS abnormal but now improving Surgery consulted- Dr Funes - feels that pain is sec to Gastroenteritis HIDA scan: no cystic duct obstruction received empirically IV Unasyn and Flagyl 2. Vomiting Diarrhea prob Gastroenteritis receivedf IVF - resolved Stool C Diff toxin: negative Ova and Parasite: negative counselled on hydration and PO intake 3. Hyponatremia, improved received IVF 4 Transaminitis unclear etiology Hepatitis profile: negative LFT improving 5. Stress ulcer Prophylaxis with Pepcid 6. DVT prophylaxis with SCD 7. Anemia most likely acute blood loss anemia and dilutional Patient had D&c 1 week ago and currently having vaginal bleeding Hgb 9.7 Continue vitamins, follow up with her OB sincre patient wolud like to try to get again 7. Recent D&C-- 1 week ago follow up with her Ob this next week on Saturday 8.Folliculitis left groin area 3 infected follicules present Counselled on hygiene, avoid shaving Discharge Exam - Head Exam Head Exam: ATRAUMATIC, NORMAL INSPECTION, NORMOCEPHALIC - Eye Exam Eye Exam: EOMI, Normal appearance, PERRL Pupil Exam: NORMAL ACCOMODATION - ENT Exam ENT Exam: Mucous Membranes Moist, Normal Exam - Neck Exam Neck exam: Full Rom, Normal Inspection - Respiratory Exam Respiratory Exam: Clear to PA & Lateral, NORMAL BREATHING PATTERN. absent: Rales, Rhonchi, Wheezes - Cardiovascular Exam Cardiovascular Exam: REGULAR RHYTHM, RRR, +S1, +S2. absent: JVD - GI/Abdominal Exam GI & Abdominal Exam: Normal Bowel Sounds, Soft. absent: Distended, Guarding, Rebound, Tenderness - Rectal Exam Rectal Exam: Deferred - Extremities Exam Extremities exam: normal capillary refill, normal inspection, pedal pulses present - Back Exam Back exam: NORMAL INSPECTION - Neurological Exam Neurological exam: Alert, CN II-XII Intact, Oriented x3, Reflexes Normal - Skin Skin Exam: Dry, Pallor, Warm Additional comments: lft groin 3 infected follicules Discharge Plan - Follow Up Plan Condition: GOOD Disposition: HOME/ ROUTINE Patient education suggested?: Yes Additional Instructions: Follow up with her OB & director emergency department Referrals: Amos Funes MD [Staff Provider] -
[2016-12-22 07:37] VITALS: BP 94/59; PULSE 72; RESP 20; TEMP 98.2
[2016-12-22 08:08] LABS: BASO % 0.4 % (0.0-2.0); EOS # 0.1 K/uL (0.0-0.7); HEMATOCRIT 28.8 % (34.0-47.0); LYMPH % 18.2 % (20.0-40.0); MEAN CELL VOLUME 89.5 fl (81.0-99.0); MEAN CORPUSCULAR HEMOGLOBIN 30.1 pg (27.0-31.0); MEAN CORPUSCULAR HGB CONC 33.6 g/dL (33.0-37.0); MEAN PLATELET VOLUME 8.8 fl (7.2-11.7); MONO # 0.7 K/uL (0.0-0.8); MONO % 12.4 % (0.0-10.0); NEUT # 3.9 K/uL (1.8-7.0); NRBC % 0.1 % (0.0-0.0); RED CELL DISTRIBUTION WIDTH 12.8 % (11.5-14.5); WHITE BLOOD COUNT 5.7 K/uL (4.8-10.8)
[2016-12-22 08:17] LABS: ALB/GLOB RATIO 1.2 (1.0-2.1); ALKALINE PHOSPHATASE 41 U/L (38-126); ALT/SGPT 56 U/L (9-52); AST/SGOT 18 U/L (14-36); BILIRUBIN,TOTAL 0.2 mg/dl (0.2-1.3); BLOOD UREA NITROGEN 4 mg/dl (7-17); CALCIUM 8.3 mg/dL (8.4-10.2); CARBON DIOXIDE 26 mmol/L (22-30); CHLORIDE 105 mmol/L (98-107); GFR AFRICAN-AMERICAN > 60; GLUCOSE,RANDOM 87 mg/dL (65-105); POTASSIUM 3.8 MMOL/L (3.6-5.0); SODIUM 139 mmol/l (132-148); TOTAL PROTEIN 5.6 G/DL (6.3-8.2)
--- NOTE | 2016-12-22 08:33 | CP.PCM.PN ---
<Richard Pacheco - Last Filed: 12/22/16 08:30> Subjective - Date & Time of Evaluation Date of Evaluation: 12/22/16 Time of Evaluation: 06:00 - Subjective Subjective: SURGERY NOTE FOR DR. FUNES 36F seen and examined at bedside. States pain is fully resolved, denies N/V/F/ C. Diarrhea amount is decreasing, tolerating diet and wants to go home. Objective - Vital Signs/Intake and Output Vital Signs (last 24 hours): Temp Pulse Resp BP Pulse Ox 98.2 F 72 20 94/59 L 94 L 12/22/16 07:36 12/22/16 07:36 12/22/16 07:36 12/22/16 07:36 12/22/16 07:36 - Medications Medications: Current Medications Famotidine (Pepcid) 20 mg IVP Q12 [facility] Last Admin: 12/21/16 21:38 Dose: 20 mg Ampicillin Sodium/Sulbactam (Sodium 3 gm/ Sodium Chloride) 100 mls @ 100 mls/ hr IVPB Q6 [facility] Last Admin: 12/22/16 03:59 Dose: 100 mls/hr Metronidazole (Flagyl 500mg/100ml Ns) 100 mls @ 100 mls/hr IVPB Q8 [facility] Last Admin: 12/22/16 01:46 Dose: 100 mls/hr Morphine Sulfate (Morphine) 2 mg IVP Q4 PRN PRN Reason: Pain, moderate (4-7) Last Admin: 12/20/16 21:41 Dose: 2 mg Morphine Sulfate (Morphine) 4 mg IVP Q4 PRN PRN Reason: Pain, severe (8-10) Ondansetron HCl (Zofran Inj) 4 mg IVP Q4 PRN PRN Reason: Nausea/Vomiting Zolpidem Tartrate (Ambien) 5 mg PO HS PRN PRN Reason: Sleep Last Admin: 12/21/16 22:40 Dose: 5 mg - Labs Labs: 12/22/16 06:00 12/22/16 06:00 PT 13.9 Seconds (9.8-13.1) H 12/21/16 06:10 INR 1.2 (0.9-1.2) 12/21/16 06:10 APTT 27.4 Seconds (25.6-37.1) 12/21/16 06:10 - Constitutional Appears: Non-toxic, No Acute Distress - ENT Exam ENT Exam: Mucous Membranes Moist - Respiratory Exam Respiratory Exam: Clear to Ausculation Bilateral, NORMAL BREATHING PATTERN - Cardiovascular Exam Cardiovascular Exam: REGULAR RHYTHM, +S1, +S2 - GI/Abdominal Exam GI & Abdominal Exam: Soft. absent: Distended, Firm, Guarding, Rigid, Tenderness , Rebound - Extremities Exam Extremities Exam: absent: Pedal Edema, Tenderness - Neurological Exam Neurological Exam: Alert, Awake Assessment and Plan - Assessment and Plan (Free Text) Assessment: 36F with gastroenteritis (resolving) - ADAT - no surgical intervention at this time Further recs discuss with Dr. Shantel Pacheco, PGY1 <Amos Funes - Last Filed: 12/22/16 14:40> Subjective - Date & Time of Evaluation Time of Evaluation: 14:15 - Subjective Subjective: Patient was seen and examined at the bedside. Agree with resident's note above. Objective - Vital Signs/Intake and Output Vital Signs (last 24 hours): Temp Pulse Resp BP Pulse Ox 98.2 F 72 20 94/59 L 94 L 12/22/16 07:36 12/22/16 07:36 12/22/16 07:36 12/22/16 07:36 12/22/16 07:36 - Medications Medications: Current Medications Famotidine (Pepcid) 20 mg IVP Q12 [facility] Last Admin: 12/22/16 09:15 Dose: 20 mg Morphine Sulfate (Morphine) 2 mg IVP Q4 PRN PRN Reason: Pain, moderate (4-7) Last Admin: 12/20/16 21:41 Dose: 2 mg Morphine Sulfate (Morphine) 4 mg IVP Q4 PRN PRN Reason: Pain, severe (8-10) Ondansetron HCl (Zofran Inj) 4 mg IVP Q4 PRN PRN Reason: Nausea/Vomiting Zolpidem Tartrate (Ambien) 5 mg PO HS PRN PRN Reason: Sleep Last Admin: 12/21/16 22:40 Dose: 5 mg - Labs Labs: 12/22/16 06:00 12/22/16 06:00 PT 13.9 Seconds (9.8-13.1) H 12/21/16 06:10 INR 1.2 (0.9-1.2) 12/21/16 06:10 APTT 27.4 Seconds (25.6-37.1) 12/21/16 06:10 Assessment and Plan - Assessment and Plan (Free Text) Plan: - Clear for discharge home from the surgical stand point - No need for further antibiotics
[2016-12-22 23:10] VITALS: O2SAT 100
== END 2016-12-22 15:12 | disposition home or self-care (01) | DRG 392 ==
LOC: H.ER 18:26 → H.ERHOLD 21:47 → H.MEDSURG1 23:40 → OBSVTOIN 12-20 18:59
PROVIDERS: ADMIT Internal Medicine; ATTEND Internal Medicine
DX: K52.9 Noninfective gastroenteritis and colitis, unspecified (principal); E87.1 Hypo-osmolality and hyponatremia; D62 Acute posthemorrhagic anemia; K80.80 Other cholelithiasis without obstruction; E86.0 Dehydration; L73.8 Other specified follicular disorders; Z98.890 Other specified postprocedural states; R74.0 Nonspecific elevation of levels of transaminase and lactic acid dehydrogenase [LDH]